=== PATIENT | female | born 1975 | race Caucasian/White ===

== ENCOUNTER 2018-05-08 16:14 | Inpatient (IN) | payer OTHER ==
[~2018-05-08] VITALS: Ht 160 cm; Wt 70.8 kg
[2018-05-08] MEDS ORDERED: LOVENOX30 MG/0.3 SUBCUTANEO (16:58)
[2018-05-08] MEDS ORDERED: NIFE60TA3 PO (16:59)
[2018-05-08] MEDS ORDERED: ADULT ASPIRIN81 MG PO (17:00)
[2018-05-08] MEDS ORDERED: INTEGRA CAPSUL1 EACH PO (17:00)
[2018-05-08] MEDS ORDERED: PRENATAL FORMU1 EAC1 PO (17:01)
[2018-05-08] MEDS ORDERED: FOLIC ACID1 MG PO (17:01)
== END 2018-05-11 14:13 | DRG 807 ==
LOC: LDR 16:14 → OB/GYN 05-09 18:17
PROVIDERS: ADMIT Specialist
PROC: 4A1HXCZ Monitoring of Products of Conception, Cardiac Rate, External Approach (ICD-10-PCS; 2018-05-08)
PROC: 10E0XZZ Delivery of Products of Conception, External Approach (ICD-10-PCS; principal; 2018-05-09)
PROC: 0W8NXZZ Division of Female Perineum, External Approach (ICD-10-PCS; 2018-05-09)
PROC: 3E033VJ Introduction of Other Hormone into Peripheral Vein, Percutaneous Approach (ICD-10-PCS; 2018-05-09)
DX: O80 Encounter for full-term uncomplicated delivery (principal); Z37.0 Single live birth; Z3A.37 37 weeks gestation of pregnancy